=== PATIENT | male | born 1935 | race Caucasian/White ===

== ENCOUNTER 2018-03-12 15:51 | Inpatient (IN) | payer OTHER ==
[~2018-03-12] VITALS: Ht 180.3 cm; Wt 106.4 kg
[2018-03-12 16:28] LABS: BASOPHILS % (AUTO) 0.8 % (0.0-5.0); EOSINOPHILS % (AUTO) 8.8 % (0.0-8.0); HEMATOCRIT 38.1 % (42-54); LYMPHOCYTES % (AUTO) 14.3 % (21.0-51.0); MEAN CORPUSCULAR HEMOGLOBIN 36.1 pg (27.0-33.0); MEAN CORPUSCULAR VOLUME 103.2 fL (79-99); MONOCYTES % (AUTO) 5.2 % (3.0-13.0); NEUTROPHILS % (AUTO) 70.9 % (40.0-77.0); NUCLEATED RED BLOOD CELLS 0.1 % (0.0-0.19); PLATELET COUNT (AUTO) 168 K/uL (130-400); RED BLOOD CELL COUNT(AUTO) 3.69 MIL/uL (4.50-6.20); RED CELL DISTRIBUTION WIDTH 14.6 % (11.0-15.5); WHITE BLOOD COUNT (AUTO) 6.7 K/uL (4.8-10.8)
[2018-03-12 16:31] LABS: APPEARANCE,URINE Cloudy (CLEAR); BILIRUBIN,URINE Negative (NEGATIVE); COLOR,URINE Yellow (YELLOW); GLUCOSE, URINE (UA) Negative (NEGATIVE); KETONES,URINE Negative (NEGATIVE); LEUKOCYTE ESTERASE ,URINE Moderate (NEGATIVE); NITRATE,URINE Negative (NEGATIVE); OCCULT BLOOD,URINE Small (NEGATIVE); PROTEIN,URINE POS 2+ (NEGATIVE)
[2018-03-12 16:39] LABS: INR 0.96 (0.85-1.15); PROTHROMBIN TIME 10.1 SEC (9.6-11.6)
[2018-03-12 16:40] LABS: CREATININE 1.4 mg/dL (0.5-1.5); POTASSIUM 4.3 mmol/L (3.5-5.1)
[2018-03-12 16:45] LABS: B-TYPE NATRIURETIC PEPTIDE 222 pg/mL (0-100)
[2018-03-12 16:46] LABS: WBC,URINE 51-100 /HPF (0-1)
[2018-03-12 16:47] LABS: BACTERIA,URINE Rare /HPF (None Seen)
[2018-03-12] MEDS ORDERED: ASPIRIN 325 MG TABLET ONE (16:53)
[2018-03-12 16:54] LABS: CREATINE KINASE MB 1.9 ng/mL (0.5-3.6); TOTAL PROTEIN, SERUM 7.1 g/dL (6.0-8.3)
[2018-03-12] MEDS ORDERED: CEFTRIAXONE SODIUM 2 GM VIAL ONE (17:03)
[2018-03-12] MEDS ORDERED: SODIUM CHLORIDE 0.9% 1000ML 1,000 ML IV ONE (17:03)
[2018-03-12] MEDS ORDERED: ONDANSETRON HCL MDV 20ML 2 MG/ML VIAL IVP PRN (19:30)
[2018-03-12] MEDS ORDERED: POTASSIUM CHLORIDE 10% ELIXIR 20 MEQ/15 ML UDCUP PO PRN (19:30)
[2018-03-12] MEDS ORDERED: POTASSIUM CHLORIDE 20MEQ/100ML 100 ML IV PRN (19:30)
[2018-03-12] MEDS ORDERED: POTASSIUM CHLORIDE 20 MEQ ERTAB PO PRN (19:30)
[2018-03-12] MEDS ORDERED: LIDOCAINE HCL-MPF 1% 2ML VIAL IJ PRN (19:30)
[2018-03-12] MEDS ORDERED: ACETAMINOPHEN 325 MG TAB PO PRN (19:30)
[2018-03-12] MEDS: LEVOFLOXACIN 500 MG/D5W 100 ML 100 ML IV SCH (20:45)
[2018-03-12] MEDS ORDERED: FAMOTIDINE 20MG TAB 20 MG TAB PO SCH (20:45)
[2018-03-12] MEDS ORDERED: MORPHINE SULFATE 4 MG/1ML SYG IM SCH (20:45)
[2018-03-12] MEDS ORDERED: HYDRALAZINE HCL 20 MG/ML VIAL ONE (21:43)
[2018-03-12] MEDS ORDERED: ENOXAPARIN SODIUM 40 MG/0.4 ML SYRINGE SQ ONE (21:44)
[2018-03-12] MEDS ORDERED: FAMOTIDINE 20MG TAB 20 MG TAB ONE (21:45)
[2018-03-12] MEDS ORDERED: LEVOFLOXACIN 500 MG/D5W 100 ML 100 ML ONE (21:45)
[2018-03-12 22:20] VITALS: BP 195/96
[2018-03-12] MEDS: SODIUM CHLORIDE 0.9% 1000ML 1,000 ML IV SCH (22:43)
[2018-03-12] MEDS: HYDRALAZINE HCL 20 MG/ML VIAL IM PRN (22:48)
[2018-03-12] MEDS ORDERED: IPRATROPIUM/ALBUTEROL SULFATE 3 ML SOLUTION IH PRN (23:15)
[2018-03-12] MEDS ORDERED: IPRATROPIUM/ALBUTEROL SULFATE 3 ML SOLUTION IH ONE (23:19)
[2018-03-12] MEDS ORDERED: LORAZEPAM 2 MG/ML 1 ML VIAL ONE (23:33)
[2018-03-12] MEDS ORDERED: LORAZEPAM 2 MG/ML 1 ML VIAL IVP ONE (23:45)
[2018-03-13 00:10] VITALS: BP 152/77
[2018-03-13 04:10] VITALS: BP 154/86
[2018-03-13 06:50] LABS: HEMATOCRIT 35.7 % (42-54); MEAN CORPUSCULAR HEMOGLOBIN 37.1 pg (27.0-33.0); MEAN CORPUSCULAR HGB CONC 36.4 g/dL (32.0-36.0); MEAN CORPUSCULAR VOLUME 101.9 fL (79-99); NUCLEATED RED BLOOD CELLS 0.1 % (0.0-0.19); PLATELET COUNT (AUTO) 174 K/uL (130-400); RED CELL DISTRIBUTION WIDTH 14.6 % (11.0-15.5); WHITE BLOOD COUNT (AUTO) 6.7 K/uL (4.8-10.8)
[2018-03-13 06:58] LABS: CREATININE 1.4 mg/dL (0.5-1.5); POTASSIUM 3.8 mmol/L (3.5-5.1)
[2018-03-13 08:00] VITALS: BP 157/94
[2018-03-13] MEDS: SODIUM CHLORIDE 0.9% 1000ML 1,000 ML IV SCH (11:41)
[2018-03-13] MEDS: ENOXAPARIN SODIUM 40 MG/0.4 ML SYRINGE SQ SCH (11:41)
[2018-03-13] MEDS ORDERED: METOPROLOL TARTRATE 25 MG TAB PO SCH (11:45)
[2018-03-13] MEDS ORDERED: FUROSEMIDE 10 MG/ML 4ML VIAL IV SCH (11:45)
[2018-03-13 12:00] VITALS: BP 160/87
[2018-03-13 12:12] LABS: HEMOGLOBIN A1C 6.6 % (4.0-6.0)
[2018-03-13 12:45] LABS: CREATINE KINASE MB 2.5 ng/mL (0.5-3.6); TROPONIN I 0.05 ng/mL (0.00-0.06)
[2018-03-13 12:47] LABS: CREATINE KINASE MB 3.9 ng/mL (0.5-3.6); TROPONIN I 0.37 ng/mL (0.00-0.06)
[2018-03-13 16:00] VITALS: BP 185/91
[2018-03-13] MEDS: HYDRALAZINE HCL 20 MG/ML VIAL IM PRN (19:29)
[2018-03-13 19:30] VITALS: BP 157/73
[2018-03-13] MEDS: LOSARTAN 50 MG TABLET PO SCH (21:46)
[2018-03-13] MEDS: LEVOFLOXACIN 500 MG/D5W 100 ML 100 ML IV SCH (21:46)
[2018-03-13] MEDS: METOPROLOL TARTRATE 25 MG TAB PO SCH (21:46)
[2018-03-13] MEDS: AMLODIPINE BESYLATE 5 MG TAB PO SCH (21:47)
[2018-03-14] VITALS (7 sets, daily range): BP systolic 110–149; BP diastolic 54–88
[2018-03-14] MEDS: LORAZEPAM 0.5 MG TABLET PO PRN ×2 (03:29→23:31)
[2018-03-14] MEDS: AMLODIPINE BESYLATE 5 MG TAB PO SCH (10:39)
[2018-03-14] MEDS: METOPROLOL TARTRATE 25 MG TAB PO SCH ×2 (10:39→20:05)
[2018-03-14] MEDS: LOSARTAN 50 MG TABLET PO SCH (10:39)
[2018-03-14] MEDS: ASPIRIN 325MG EC TAB 325 MG TABLET.DR PO SCH (10:40)
[2018-03-14] MEDS ORDERED: VANCOMYCIN HCL 1 GM VIAL IV SCH (11:00)
[2018-03-14] MEDS ORDERED: REGADENOSON 0.4 MG/5 ML PF SYG IVP SCH (11:15)
[2018-03-14] MEDS ORDERED: VANCOMYCIN 1GM+NS 250ML 250 ML IV SCH (11:15)
[2018-03-14] MEDS: ENOXAPARIN SODIUM 40 MG/0.4 ML SYRINGE SQ SCH (14:26)
[2018-03-14] MEDS: LEVOFLOXACIN 500 MG/D5W 100 ML 100 ML IV SCH (20:06)
[2018-03-15 04:00] VITALS: BP 136/72
[2018-03-15 06:22] LABS: BASOPHILS % (AUTO) 0.8 % (0.0-5.0); HEMATOCRIT 39.4 % (42-54); LYMPHOCYTES % (AUTO) 14.9 % (21.0-51.0); MEAN CORPUSCULAR HEMOGLOBIN 35.5 pg (27.0-33.0); MEAN CORPUSCULAR HGB CONC 34.6 g/dL (32.0-36.0); MEAN CORPUSCULAR VOLUME 102.6 fL (79-99); MONOCYTES % (AUTO) 6.6 % (3.0-13.0); NEUTROPHILS % (AUTO) 69.7 % (40.0-77.0); NUCLEATED RED BLOOD CELLS 0.1 % (0.0-0.19); PLATELET COUNT (AUTO) 187 K/uL (130-400); RED BLOOD CELL COUNT(AUTO) 3.84 MIL/uL (4.50-6.20); RED CELL DISTRIBUTION WIDTH 14.8 % (11.0-15.5); WHITE BLOOD COUNT (AUTO) 7.3 K/uL (4.8-10.8)
[2018-03-15 06:35] LABS: CREATININE 1.7 mg/dL (0.5-1.5); POTASSIUM 4.5 mmol/L (3.5-5.1)
[2018-03-15] MEDS ORDERED: VANCOMYCIN PROTOCOL PER PHARMACY IV SCH (07:15)
[2018-03-15] MEDS ORDERED: LACTULOSE 20 GM/30 ML UDCUP PO PRN (07:45)
[2018-03-15 08:20] VITALS: BP 118/59
[2018-03-15] MEDS ORDERED: COMPOUND IV REFRIGERATED 1 EACH IVSOLN MISC PRN (08:30)
[2018-03-15] MEDS: METOPROLOL TARTRATE 25 MG TAB PO SCH ×2 (09:44→21:20)
[2018-03-15] MEDS: ASPIRIN 325MG EC TAB 325 MG TABLET.DR PO SCH (09:44)
[2018-03-15] MEDS: AMLODIPINE BESYLATE 5 MG TAB PO SCH (09:44)
[2018-03-15] MEDS: LOSARTAN 50 MG TABLET PO SCH (09:44)
[2018-03-15] MEDS: ENOXAPARIN SODIUM 40 MG/0.4 ML SYRINGE SQ SCH (09:45)
[2018-03-15] MEDS: VANCOMYCIN 1.5 GM in SODIUM CHLORIDE 0.9% 250 ML IV SCH (10:15)
[2018-03-15 11:37] VITALS: BP 131/68
[2018-03-15] MEDS: LEVOFLOXACIN 250 MG/D5W 50ML 50 ML IV SCH (12:09)
[2018-03-15 16:17] VITALS: BP 101/55
[2018-03-15 20:00] VITALS: BP 109/52
[2018-03-15 23:48] VITALS: BP 130/68
[2018-03-16 04:00] VITALS: BP 134/71
[2018-03-16 05:08] LABS: BASOPHILS % (AUTO) 0.8 % (0.0-5.0); EOSINOPHILS % (AUTO) 7.9 % (0.0-8.0); LYMPHOCYTES % (AUTO) 13.9 % (21.0-51.0); MEAN CORPUSCULAR HEMOGLOBIN 35.7 pg (27.0-33.0); MEAN CORPUSCULAR HGB CONC 34.6 g/dL (32.0-36.0); MEAN CORPUSCULAR VOLUME 103.1 fL (79-99); MONOCYTES % (AUTO) 7.9 % (3.0-13.0); NEUTROPHILS % (AUTO) 69.5 % (40.0-77.0); PLATELET COUNT (AUTO) 179 K/uL (130-400); RED BLOOD CELL COUNT(AUTO) 3.59 MIL/uL (4.50-6.20); RED CELL DISTRIBUTION WIDTH 14.9 % (11.0-15.5); WHITE BLOOD COUNT (AUTO) 6.9 K/uL (4.8-10.8)
[2018-03-16 05:23] LABS: CREATININE 1.9 mg/dL (0.5-1.5); POTASSIUM 3.9 mmol/L (3.5-5.1)
[2018-03-16 05:27] LABS: B-TYPE NATRIURETIC PEPTIDE 39 pg/mL (0-100)
[2018-03-16 07:52] VITALS: BP 138/64
[2018-03-16] MEDS: AMLODIPINE BESYLATE 5 MG TAB PO SCH (09:17)
[2018-03-16] MEDS: ASPIRIN 325MG EC TAB 325 MG TABLET.DR PO SCH (09:17)
[2018-03-16] MEDS: METOPROLOL TARTRATE 25 MG TAB PO SCH ×2 (09:17→21:19)
[2018-03-16] MEDS: LOSARTAN 50 MG TABLET PO SCH (09:17)
[2018-03-16] MEDS: LEVOFLOXACIN 250 MG/D5W 50ML 50 ML IV SCH (09:18)
[2018-03-16] MEDS: ENOXAPARIN SODIUM 40 MG/0.4 ML SYRINGE SQ SCH (09:18)
[2018-03-16] MEDS: VANCOMYCIN 1.5 GM in SODIUM CHLORIDE 0.9% 250 ML IV SCH (10:45)
[2018-03-16 11:17] VITALS: BP 96/58
[2018-03-16] MEDS: LORAZEPAM 0.5 MG TABLET PO PRN (14:24)
[2018-03-16 16:31] VITALS: BP 124/60
[2018-03-16 19:33] VITALS: BP 138/72
[2018-03-16] MEDS: VANCOMYCIN 0.75 GM in SODIUM CHLORIDE 0.9% 250 ML IV SCH (21:19)
[2018-03-16 23:49] VITALS: BP 131/66
[2018-03-17 04:00] VITALS: BP 120/60
[2018-03-17 08:10] VITALS: BP 126/61
[2018-03-17] MEDS: METOPROLOL TARTRATE 25 MG TAB PO SCH ×2 (10:01→22:37)
[2018-03-17] MEDS: LEVOFLOXACIN 250 MG/D5W 50ML 50 ML IV SCH (10:02)
[2018-03-17] MEDS: ASPIRIN 325MG EC TAB 325 MG TABLET.DR PO SCH (10:02)
[2018-03-17] MEDS: LOSARTAN 50 MG TABLET PO SCH (10:02)
[2018-03-17] MEDS: AMLODIPINE BESYLATE 5 MG TAB PO SCH (10:02)
[2018-03-17] MEDS: ENOXAPARIN SODIUM 40 MG/0.4 ML SYRINGE SQ SCH (10:03)
[2018-03-17] MEDS: VANCOMYCIN 0.75 GM in SODIUM CHLORIDE 0.9% 250 ML IV SCH ×2 (12:12→22:37)
[2018-03-17 12:19] VITALS: BP 128/70
[2018-03-17 16:22] VITALS: BP 120/73
[2018-03-17 19:10] VITALS: BP 121/64
[2018-03-18 00:10] VITALS: BP_SYST 131; BP_SYST 133; BP_DIAS 65; BP_DIAS 69
[2018-03-18 07:58] VITALS: BP 125/56
[2018-03-18] MEDS: LEVOFLOXACIN 250 MG/D5W 50ML 50 ML IV SCH (09:10)
[2018-03-18] MEDS: METOPROLOL TARTRATE 25 MG TAB PO SCH ×2 (09:10→21:48)
[2018-03-18] MEDS: AMLODIPINE BESYLATE 5 MG TAB PO SCH (09:10)
[2018-03-18] MEDS: ASPIRIN 325MG EC TAB 325 MG TABLET.DR PO SCH (09:10)
[2018-03-18] MEDS: LOSARTAN 50 MG TABLET PO SCH (09:10)
[2018-03-18] MEDS: ENOXAPARIN SODIUM 40 MG/0.4 ML SYRINGE SQ SCH (09:11)
[2018-03-18] MEDS ORDERED: SODIUM CHLORIDE 0.9% 250 ML IV ONE (09:15)
[2018-03-18 11:43] VITALS: BP 136/57
[2018-03-18] MEDS: VANCOMYCIN 0.75 GM in SODIUM CHLORIDE 0.9% 250 ML IV SCH ×2 (12:38→22:11)
[2018-03-18 16:07] VITALS: BP 120/55
[2018-03-18 19:10] VITALS: BP 133/73
[2018-03-18] MEDS: LORAZEPAM 0.5 MG TABLET PO PRN (21:48)
[2018-03-19 00:10] VITALS: BP 118/50
[2018-03-19 04:10] VITALS: BP 123/69
[2018-03-19 08:18] VITALS: BP 133/49
[2018-03-19] MEDS: LEVOFLOXACIN 250 MG/D5W 50ML 50 ML IV SCH (09:46)
[2018-03-19] MEDS: ASPIRIN 325MG EC TAB 325 MG TABLET.DR PO SCH (09:55)
[2018-03-19] MEDS ORDERED: VANCOMYCIN 500MG+NS 100ML 100 ML IV SCH ×2 (09:55→21:00)
[2018-03-19] MEDS: AMLODIPINE BESYLATE 5 MG TAB PO SCH (09:56)
[2018-03-19] MEDS: LOSARTAN 50 MG TABLET PO SCH (09:56)
[2018-03-19] MEDS: METOPROLOL TARTRATE 25 MG TAB PO SCH (09:57)
[2018-03-19] MEDS: ENOXAPARIN SODIUM 40 MG/0.4 ML SYRINGE SQ SCH (10:01)
[2018-03-19] MEDS: VANCOMYCIN 0.75 GM in SODIUM CHLORIDE 0.9% 250 ML IV SCH (10:28)
[2018-03-19 12:09] VITALS: BP 142/66
[2018-03-19] MEDS ORDERED: LOSA50TA2 PO (13:28)
[2018-03-19] MEDS ORDERED: LEVO250T2 PO (13:28)
[2018-03-19] MEDS ORDERED: AMLO5TAB4 PO (13:28)
[2018-03-19] MEDS ORDERED: METO25 PO (13:28)
== END 2018-03-19 14:20 | disposition home or self-care (01) | DRG 291 ==
LOC: EDH 15:51 → EDHIP 18:40 → 3CH 22:03
PROVIDERS: ADMIT Family Medicine; ATTEND Family Medicine
DX: I13.0 Hypertensive heart and chronic kidney disease with heart failure and stage 1 through stage 4 chronic kidney disease, or unspecified chronic kidney disease (principal); I50.43 Acute on chronic combined systolic (congestive) and diastolic (congestive) heart failure; E11.22 Type 2 diabetes mellitus with diabetic chronic kidney disease; R78.81 Bacteremia; I24.9 Acute ischemic heart disease, unspecified; E66.01 Morbid (severe) obesity due to excess calories; N39.0 Urinary tract infection, site not specified; I69.354 Hemiplegia and hemiparesis following cerebral infarction affecting left non-dominant side; I25.10 Atherosclerotic heart disease of native coronary artery without angina pectoris; L40.9 Psoriasis, unspecified; N18.9 Chronic kidney disease, unspecified; B96.89 Other specified bacterial agents as the cause of diseases classified elsewhere; F41.9 Anxiety disorder, unspecified; Z86.79 Personal history of other diseases of the circulatory system; Z79.82 Long term (current) use of aspirin; Z68.32 Body mass index [BMI] 32.0-32.9, adult; Z79.899 Other long term (current) drug therapy; Z87.891 Personal history of nicotine dependence; Z88.0 Allergy status to penicillin
CPT/HCPCS: 36415; 71045; 78452; 80048; 80053; 80061; 80202; 81001; 82550; 82553; 83036; 83605; 83874; 83880; 84484; 85025; 85027; 85610; 85730; 87040; 87088; 87186; 87633; 87804; 87807; 93005; 93017; 93306; 93880; 94640; 94664; 96374; 97039; A9500; J0360; J0696; J1650; J1940; J1956; J2060; J2785; J3370; J7030